=== PATIENT | male | born 1990 | race Two or more races ===

== ENCOUNTER 2021-12-13 05:49 | Emergency (ER) | payer SELFPAY ==
[~2021-12-13] VITALS: Ht 167.6 cm; Wt 109.9 kg
[2021-12-13 10:00] VITALS: BP 139/86
[2021-12-13] MEDS ORDERED: IBUP800T26 PO (10:01)
[2021-12-13] MEDS ORDERED: CYCL-837 PO (10:01)
== END 2021-12-13 10:20 | disposition home or self-care (01) ==
LOC: ER 05:49
DX: S42.021A Displaced fracture of shaft of right clavicle, initial encounter for closed fracture (principal); V86.59XA Driver of other special all-terrain or other off-road motor vehicle injured in nontraffic accident, initial encounter; Y93.89 Activity, other specified; Y92.89 Other specified places as the place of occurrence of the external cause; Y99.8 Other external cause status; V43.62XA Car passenger injured in collision with other type car in traffic accident, initial encounter; Y92.410 Unspecified street and highway as the place of occurrence of the external cause
CPT/HCPCS: 29105; 73030